=== PATIENT | female | born 1960 | race Caucasian/White ===

== ENCOUNTER 2016-11-08 12:28 | Inpatient (IN) | payer BC ==
[~2016-11-08] VITALS: Ht 167.6 cm; Wt 68.9 kg
[2016-11-08] MEDS ORDERED: ESCI5TAB PO (12:45)
[2016-11-08] MEDS ORDERED: PANT40TA2 PO (12:45)
[2016-11-08] MEDS ORDERED: GABA-534 PO (12:45)
[2016-11-08 13:42] LABS: BASOPHILS % (AUTO) 0.6 % (0.0-2.0); HEMATOCRIT 26.6 % (37-47); HEMOGLOBIN 8.1 G/DL (12.0-16.0); LYMPHOCYTES # (AUTO) 1.1 K/UL (0.8-4.8); LYMPHOCYTES % (AUTO) 30.5 % (20.5-51.5); MEAN CORPUSCULAR HEMOGLOBIN 20.6 UUG (27.0-31.0); MEAN CORPUSCULAR HGB CONC 30 g/dL (32.0-37.0); MEAN CORPUSCULAR VOLUME 67.7 FL (81.0-99.0); MONOCYTES # (AUTO) 0.3 K/UL (0.1-1.30); MONOCYTES % (AUTO) 8.6 % (0.0-11.0); NEUTROPHILS # (AUTO) 2.1 K/UL (1.8-8.9); NEUTROPHILS % (AUTO) 59.3 % (38.5-71.5); PLATELET COUNT (AUTO) 117 K/UL (150-450); RED BLOOD CELL COUNT(AUTO) 3.92 MIL/UL (4.2-5.4); WHITE BLOOD COUNT (AUTO) 3.5 K/UL (4.0-11.2)
[2016-11-08 13:46] LABS: CREATININE 0.6 mg/dL (0.6-1.3); POTASSIUM 3.3 mmol/L (3.5-5.1)
[2016-11-08 13:52] LABS: BILIRUBIN,DIRECT 0.2 mg/dL (0.0-0.2); BILIRUBIN,TOTAL 0.6 mg/dL (0.2-1.0)
[2016-11-08] MEDS ORDERED: HYDROMORPHONE 1 MG/1 ML DISP.SYRIN IV PRN (15:15)
[2016-11-08] MEDS ORDERED: TRAZ-147 PO (15:16)
[2016-11-08] MEDS ORDERED: SPIR50TA PO (15:16)
[2016-11-08] MEDS ORDERED: FURO-151 PO (15:16)
[2016-11-08] MEDS ORDERED: HYDR25CA PO (15:16)
[2016-11-08] MEDS ORDERED: ESCI20TA PO (15:16)
[2016-11-08] MEDS ORDERED: HYDROMORPHONE 1 MG/1 ML DISP.SYRIN ONE (15:32)
[2016-11-08 16:04] VITALS: BP 129/65
[2016-11-08] MEDS ORDERED: MAGNESIUM HYDROXIDE 30 ML LIQUID UDC PO PRN (17:30)
[2016-11-08] MEDS ORDERED: ONDANSETRON 4 MG/2 ML VIAL IV PRN (17:30)
[2016-11-08] MEDS: MORPHINE SULFATE 2 MG/1 ML DISP.SYRIN IV PRN ×2 (18:52→22:53)
[2016-11-08 20:21] VITALS: BP 124/71
[2016-11-08] MEDS ORDERED: DOCUSATE SODIUM 100 MG CAPSULE PO SCH (21:00)
[2016-11-09] VITALS (10 sets, daily range): BP systolic 102–134; BP diastolic 60–76
[2016-11-09] MEDS: MORPHINE SULFATE 2 MG/1 ML DISP.SYRIN IV PRN ×4 (03:34→16:52)
[2016-11-09 06:34] LABS: BASOPHILS % (AUTO) 0.5 % (0.0-2.0); EOSINOPHILS # (AUTO) 0.1 K/uL (0.0-0.7); EOSINOPHILS % (AUTO) 1.7 % (0.0-7.0); HEMOGLOBIN 7.3 G/DL (12.0-16.0); LYMPHOCYTES % (AUTO) 30.4 % (20.5-51.5); MEAN CORPUSCULAR HEMOGLOBIN 20.6 UUG (27.0-31.0); MEAN CORPUSCULAR HGB CONC 30 g/dL (32.0-37.0); MEAN CORPUSCULAR VOLUME 67.8 FL (81.0-99.0); MONOCYTES # (AUTO) 0.4 K/UL (0.1-1.30); MONOCYTES % (AUTO) 11.1 % (0.0-11.0); NEUTROPHILS # (AUTO) 1.9 K/UL (1.8-8.9); NEUTROPHILS % (AUTO) 56.3 % (38.5-71.5); PLATELET COUNT (AUTO) 97 K/UL (150-450); RED BLOOD CELL COUNT(AUTO) 3.55 MIL/UL (4.2-5.4); WHITE BLOOD COUNT (AUTO) 3.4 K/UL (4.0-11.2)
[2016-11-09 06:51] LABS: BILIRUBIN,TOTAL 0.6 mg/dL (0.2-1.0); CREATININE 0.6 mg/dL (0.6-1.3); MAGNESIUM 1.9 mg/dL (1.8-2.4); PHOSPHOROUS 3.4 mg/dL (2.5-4.9); POTASSIUM 3.7 mmol/L (3.5-5.1); THYROID STIMULATING HORMONE 4.17 mIU/mL (0.358-3.740)
[2016-11-09] MEDS ORDERED: PANTOPRAZOLE SODIUM 40 MG TABLET.DR PO SCH (07:00)
[2016-11-09] MEDS: GABAPENTIN 300 MG CAPSULE PO SCH ×3 (08:16→16:51)
[2016-11-09] MEDS ORDERED: FUROSEMIDE 40 MG TABLET PO SCH (09:00)
[2016-11-09] MEDS ORDERED: SPIRONOLACTONE 50 MG TABLET PO SCH (09:00)
[2016-11-09] MEDS ORDERED: Medication Not On Formulary EA (Escitalopram Oxalate (Lexapro) 20 MG) PO SCH (09:00)
[2016-11-09 10:34] LABS: BASOPHILS % (MANUAL) 1 % (0-2); EOSINOPHILS % (MANUAL) 2 % (0-8); LYMPHOCYTES % (MANUAL) 29 % (20-40); MONOCYTES % (MANUAL) 7 % (2-10); NEUTROPHILS % (MANUAL) 61 % (42-75)
[2016-11-09] MEDS ORDERED: NORMAL SALINE FLUSH 10 ML DISP.SYRIN IV SCH (14:00)
[2016-11-09] MEDS ORDERED: TRAZODONE 100 MG TABLET PO SCH (21:00)
== END 2016-11-09 19:10 | disposition home or self-care (01) | DRG 433 ==
LOC: ER 12:39 → TELE 15:06
PROVIDERS: ADMIT Internal Medicine; ATTEND Internal Medicine
PROC: 30233N1 Transfusion of Nonautologous Red Blood Cells into Peripheral Vein, Percutaneous Approach (ICD-10-PCS; principal; 2016-11-09)
DX: K70.31 Alcoholic cirrhosis of liver with ascites (principal); K76.6 Portal hypertension; E44.0 Moderate protein-calorie malnutrition; I85.10 Secondary esophageal varices without bleeding; K92.1 Melena; D50.9 Iron deficiency anemia, unspecified; B18.2 Chronic viral hepatitis C; Z85.3 Personal history of malignant neoplasm of breast; Z90.12 Acquired absence of left breast and nipple; Z87.891 Personal history of nicotine dependence; Z79.899 Other long term (current) drug therapy; Z88.0 Allergy status to penicillin; D69.6 Thrombocytopenia, unspecified; Z68.24 Body mass index [BMI] 24.0-24.9, adult; E87.6 Hypokalemia; R01.1 Cardiac murmur, unspecified; F10.21 Alcohol dependence, in remission; Z86.718 Personal history of other venous thrombosis and embolism; Z79.01 Long term (current) use of anticoagulants
CPT/HCPCS: 36415; 71010; 83550; 83690; 83735; 84100; 84443; 85025; 85610; 86850; 86900; 86901; 86920; 93005; 93307; 97161; A4663; J1170; J2270; J3490; J7050; P9016-BL; P9021